=== PATIENT | female | born 1945 | race Caucasian/White ===

== ENCOUNTER 2018-03-28 22:25 | Emergency (ER) | payer MEDICARE, SELFPAY ==
[2018-03-28 22:40] VITALS: BP 133/83; PULSE 100; RESP 17; TEMP 36.4; O2SAT 98
[2018-03-28 22:44] VITALS: PULSE 100; RESP 17; TEMP 36.4; O2SAT 98; BMI 26.6
--- NOTE | 2018-03-28 22:49 | ED_ITS ---
HPI - Female Genitourinary General Chief complaint: Urogenital-Female Stated complaint: UTI Time Seen by Provider: 03/28/18 22:47 Source: patient Mode of arrival: ambulatory Limitations: no limitations History of Present Illness HPI Narrative: 73F Nonsmoker presents with UTI. She arrives with her , has very few other medical problems and complains of urinary frequency and hematuria with some suprapubic discomfort. She has had urinary tract infections in the past and states this feels the same. She denies nausea, vomiting, fever, shaking chills or back pain to suggest pyelonephritis. Related Data Previous Rx's Medication Instructions Recorded cephalexin [Keflex] 500 mg PO QID 5 Days #20 cap 03/28/18 Allergies Allergy/AdvReac Type Severity Reaction Status Date / Time No Known Drug Allergies Allergy Verified 03/28/18 23:21 Review of Systems Review of Systems All systems reviewed & are unremarkable except as noted in HPI and below Constitutional Denies chills, Denies fever(s), Denies lethargy and Denies weakness Eyes Denies change in vision, Denies eye discharge, Denies irritation and Denies loss of vision ENT Ears, Nose, Mouth, and Throat: Denies change in voice, Denies neck pain and Denies sore throat Cardiovascular Denies chest pain, Denies irregular heart rhythm, Denies lightheadedness, Denies palpitations, Denies dyspnea, Denies dyspnea on exertion and Denies orthopnea Respiratory Denies cough, Denies dyspnea, Denies dyspnea on exertion and Denies wheezing Gastrointestinal Gastrointestinal: Denies abdominal pain, Denies change in bowel habits, Denies diarrhea, Denies nausea and Denies vomiting Genitourinary Reports hematuria, Denies flank pain, Denies urinary incontinence and Reports urinary urgency Musculoskeletal Denies neck pain Integumentary/Breasts Denies pruritus, Denies erythema, Denies rash and Denies wounds Neurologic Denies confusion, Denies loss of vision and Denies weakness Psychiatric Denies anxiety, Denies confusion, Denies depression, Denies homicidal ideation and Denies suicidal ideation Endocrine Denies palpitations Hematologic/Lymphatic Denies easy bruising Allergic/Immunologic Denies wheezing PFSH Social History Smoking Status: Never smoker Exam Narrative Exam Narrative: GEN: AOx3 and in mild distress EYES: Pupils are equal, round, and reactive to light and accommodation. Extraoccular muscles are intact bilaterally. There is no subconjunctival hemorrhage or exudate. CHEST: Lungs are clear to auscultation bilaterally and free of wheezes, rales, or rhonchi. Heart rate is regular rhythm, there are no murmurs, clicks, rubs, or gallops. There is no chest wall tenderness. ABD: Abdomen is soft and nontender. There is no guarding or rebound. Bowel sounds are normal in all 4 quadrants. There is no mass or organomegaly. EXT: Full painless ROM of all extremities with no loss of sensation or strength. SKIN: Warm, pink, and dry. No erythema or rash BACK: no CVA tenderness Initial Vital Signs Initial Vital Signs: Vital Signs Temperature 97.5 F L 03/28/18 22:40 Pulse Rate 100 H 03/28/18 22:40 Respiratory Rate 17 03/28/18 22:40 Blood Pressure 133/83 03/28/18 22:40 Pulse Oximetry 98 03/28/18 22:40 Course Orders Ordered: ED Orders 03/28/18 22:40 Urine Culture Stat Urine Microscopic Stat Discontinued Medications Cefazolin Sodium (Keflex) 1 bottle MISC SEEINSTR ONE Stop: 03/28/18 23:05 Last Admin: 03/28/18 23:21 Dose: 1 bottle Vital Signs - 8 hr 03/28/18 22:40 03/28/18 22:44 Temperature 97.5 F L 97.5 F L Pulse Rate 100 H 100 H Respiratory Rate 17 17 Blood Pressure [Left Arm] 133/83 Pulse Oximetry 98 98 MDM - Female Genitourinary Lab Data Lab Results 03/28/18 Range/Units 22:40 Urine RBC >100/hpf H (0-5/HPF) Urine WBC 30-100/hpf H (0-5/HPF) Urine Bacteria Few (2-10) H (None) Ur Culture Indicated? Specimen cultured Micro UA Comment Not Reportable Discharge Plan Departure Patient Disposition: Home Clinical Impression: Acute UTI Discharge Date/Time: 03/28/18 23:37 Interventions: ED Discharge Assessment Last Done: 03/28/18 23:37 Instructions: DI for Urinary Tract Infection (UTI) Activity Restrictions/Additional Instructions: *You have been diagnosed with [ acute UTI ] *What to do: *Take medications as directed *Follow up with your primary care provider in 2-3 days, call for an appointment. Let them know you were seen in the Emergency Department and that we ask that you be seen in follow up *Return to ER if you should have any new, worsening or concerning symptoms , such as [fever, back pain, shaking chills, vomiting, other concerning symptoms ] Prescriptions: New cephalexin [Keflex] 500 mg capsule 500 mg PO QID 5 Days Qty: 20 RF: 0
[2018-03-28] MEDS: cephALEXin 250 MG PREPACK 1 BOTTLE MISC (23:21)
[2018-03-28 23:39] LABS: Bacteria Urine Few (2-10); RBC Urine >100/HPF (0-5/HPF); WBC Urine 30-100/HPF (0-5/HPF)
[2018-03-28 23:40] LABS: Culture Indicated Urine Specimen Cultured
== END 2018-03-28 23:37 | disposition home or self-care (01) ==
PROVIDERS: Emergency Provider Emergency Medicine
DX: N39.0 Urinary tract infection, site not specified (principal)
CPT/HCPCS: 81015; 87077; 87086; 87186; 99282; 99283